=== PATIENT | male | born 1985 | race Caucasian/White ===

== ENCOUNTER 2022-03-19 06:04 | Outpatient (REF) | payer MEDICAID, SELFPAY ==
--- NOTE | ~2022-03-19 | XR_ITS ---
EXAMINATION: XR LUMBOSACRAL SPINE CLINICAL INFORMATION: Low back pain COMPARISON: None TECHNIQUE: Three views of the lumbosacral spine. FINDINGS: The vertebral bodies and posterior elements are normal. The disc spaces are preserved and the vertebral alignment is normal. The paraspinal soft tissues are normal. XR/XR lumbar spine 2-3V IMPRESSION: Unremarkable examination.
== END 2022-03-19 06:05 | disposition home or self-care (01) ==
LOC: HO.XRAY 06:04
PROVIDERS: PCP Registered Nurse; Visit Provider Registered Nurse
DX: M54.50 Low back pain, unspecified (principal)
CPT/HCPCS: 72100

== ENCOUNTER 2023-02-03 14:03 | Outpatient (REF) | payer MEDICAID, SELFPAY ==
--- NOTE | ~2023-02-03 | XR_ITS ---
EXAMINATION: XR FOOT, LEFT CLINICAL INFORMATION: Left foot pain for months without injury, worse with weightbearing. COMPARISON: None available. TECHNIQUE: AP, lateral, and oblique views of the left foot. FINDINGS: The bones and soft tissues are unremarkable. A bipartite accessory ossicle present adjacent to cuboid. No fracture. Alignment is anatomic. Joint spaces are maintained. XR/XR foot LT min 3V IMPRESSION: Normal left foot.
--- NOTE | ~2023-02-03 | XR_ITS ---
EXAMINATION: XR LUMBOSACRAL SPINE CLINICAL INFORMATION: Back pain without sciatica. COMPARISON: Lumbar spine 03/19/2022. TECHNIQUE: Three views of the lumbosacral spine. FINDINGS: The vertebral bodies and posterior elements are unremarkable aside from the presence of some minimal Schmorl's nodes, unchanged from prior. The disc spaces are preserved and the vertebral alignment is normal. The paraspinal soft tissues are normal. XR/XR lumbar spine 2-3V IMPRESSION: No significant interval change when compared to the prior study. No acute disease.
== END 2023-02-03 14:04 | disposition home or self-care (01) ==
LOC: HO.HHCX 14:03
PROVIDERS: Visit Provider Internal Medicine
DX: M79.672 Pain in left foot (principal); M54.50 Low back pain, unspecified
CPT/HCPCS: 72100; 73630

== ENCOUNTER 2023-08-22 10:32 | Outpatient (REF) | payer MEDICAID, SELFPAY ==
--- NOTE | ~2023-08-22 | XR_ITS ---
EXAMINATION: XR FOOT, LEFT CLINICAL INFORMATION: [id number] left foot pain. Patient stated she did have an old injury 2 years ago, has had issues since then. Patient states pain is along dorsal and lateral aspect of foot. COMPARISON: 02/03/2023. TECHNIQUE: AP, lateral, and oblique views of the left foot. FINDINGS: The bone mineralization is normal. Minimal degenerative changes with hypertrophic change along the lateral aspect of the first metatarsophalangeal joint. Mild hypertrophic change at the dorsal aspect of the talonavicular joint. XR/XR foot LT min 3V IMPRESSION: 1. Minimal degenerative changes. 2. Recommend follow up imaging in 10-14 days if fracture is suspected.
== END 2023-08-22 10:33 | disposition home or self-care (01) ==
LOC: HO.HHCX 10:32
PROVIDERS: Visit Provider Registered Nurse
DX: M79.672 Pain in left foot (principal); G89.29 Other chronic pain
CPT/HCPCS: 73630

== ENCOUNTER 2024-05-28 09:32 | Outpatient (REF) | payer MEDICAID, SELFPAY ==
--- NOTE | ~2024-05-28 | XR_ITS ---
EXAMINATION: XR CHEST CLINICAL INFORMATION: Shortness of breath with smoking history. COMPARISON: None available. TECHNIQUE: 2 views of the chest were obtained. FINDINGS: The lungs are hyperinflated. Moderate degenerative changes in the thoracic spine. No significant pleural effusion. Heart size is normal. No focal consolidation. No pleural effusion. XR/XR chest 2V IMPRESSION: Hyperinflated lungs. No focal consolidation. Electronically signed by: Riddhi Loza MD 05/28/2024 10:55 AM SRIKAN[facility] JONES
== END 2024-05-28 09:33 | disposition home or self-care (01) ==
LOC: HO.HHCX 09:32
PROVIDERS: Visit Provider Registered Nurse
DX: R06.02 Shortness of breath (principal)
CPT/HCPCS: 71046

== ENCOUNTER 2024-07-20 12:42 | Outpatient (REF) | payer OTHER, SELFPAY ==
[2024-07-20 09:57] VITALS: PULSE 75; O2SAT 99
--- NOTE | 2024-07-20 12:54 | PFT_ITS ---
Flows: FEV1: 95 % of predicted at 3.54 L FVC: 94 % of predicted at 4.30 L FEV1/FVC: 82 % Bronchodilator response: Present in small to medium airways only Volumes: Total lung capacity: 114 % of predicted at 7.14 L Residual volume: 186 % of predicted at 2.61 L Slow vital capacity: 93 % of predicted at 4.53 L Expiratory reserve volume: 89 % of predicted at 1.16 L Diffusion capacity: Normal Impression: No obstructive or restrictive ventilatory defect. Bronchodilator response is present small to medium airways only. Increased residual volume suggests air trapping. MTDD
[2024-07-20 16:32] LABS: Alanine Aminotransferase 20 U/L (0-40); Albumin Level 4.3 g/dL (3.5-5.0); Alkaline Phosphatase 78 U/L (39-117); Anion Gap 10 (12-20); Aspartate Amino Transferase 30 U/L (5-37); Bilirubin Total 0.4 mg/dL (0.0-1.0); Blood Urea Nitrogen 18 mg/dL (9-16); Calcium 9.5 mg/dL (8.4-10.2); Carbon Dioxide 28 mmol/L (22-29); Chloride 105 mmol/L (96-108); Cholesterol 175 mg/dL (<200); Estimated Glomerular Filt Rate > 60; Glucose Random 96 mg/dL (60-115); HDL Cholesterol 48 mg/dL (>40); LDL Cholesterol Calculated 112 mg/dL (<100); Potassium 4.2 mmol/L (3.3-5.1); Sodium 139 mmol/L (135-145); Total Protein 7.6 g/dL (6.5-8.0); Triglycerides 78 mg/dL (<150)
== END 2024-07-20 12:43 | disposition home or self-care (01) ==
LOC: HO.RESP 12:42
PROVIDERS: PCP Registered Nurse; Visit Provider Registered Nurse
DX: Z00.00 Encounter for general adult medical examination without abnormal findings (principal); R06.02 Shortness of breath; F17.200 Nicotine dependence, unspecified, uncomplicated
CPT/HCPCS: 36415; 80053; 80061; 94010; 94640; 94727; 94729

== ENCOUNTER → 2024-07-20 12:54 | Outpatient (BNV) | payer OTHER, SELFPAY | PROVIDERS: PCP Registered Nurse; Visit Provider Internal Medicine Pulmonary Disease | DX: R06.02 Shortness of breath (principal) | CPT/HCPCS: 94060; 94727; 94729 ==